=== PATIENT | female | born 1945 | race Two or more races ===

== ENCOUNTER 2018-12-18 00:22 | Inpatient (IN) | payer MEDICARE, OTHER ==
[~2018-12-18] VITALS: Ht 165.1 cm; Wt 52.6 kg
[2018-12-18 04:15] VITALS: BP 116/63
--- NOTE | 2018-12-18 04:30 | NUR ---
GPS FISH RECEIVER NOTES Admitted a 73 year old female from [facility], accompanied by Ambulance quality control inspector heading at around 0415hrs. Patient admitted on a 5150 hold for DTS. Patient was placed in the bed comfortably. Upon face to face evaluation, patient is confused; she has flights of ideas and talks nonsense. Patient is calm, cooperative, disheveled, and unkempt. Patient is able to walk with assistance. Skin assessment done- no skin issues noted. Belongings inventoried and checked for contraband. Patient unable to sign consent as patient is confused. MRSA swab done. Patient is under the psychiatric care of Dr. Roche and under the medical care of YIFAN Mauricio. Oriented to call rubio- placed within easy reach. Bed in lowest, locked position. Will continue to monitor [id number] to maintain safety.
[2018-12-18] MEDS ORDERED: TEMAZEPAM 7.5 MG CAPSULE PO PRN (05:00)
[2018-12-18] MEDS ORDERED: MAG HYDROX/AL HYDROX/SIMETH 30 ML UDC PO PRN (05:00)
[2018-12-18] MEDS ORDERED: MAGNESIUM HYDROXIDE 30 ML UDC PO PRN (05:00)
[2018-12-18] MEDS ORDERED: ACETAMINOPHEN 325 MG TABLET PO PRN (05:00)
--- NOTE | 2018-12-18 06:00 | NUR ---
GPS RN NOTES CN called Bowen (Son) and notified of patient's admission. No answer. Left a message on voicemail. RADIO ADJUSTER Luly informed of admission. Med recon to be done. Will endorse to oncoming RN
[2018-12-18] MEDS ORDERED: TRAZ-182 PO (06:38)
[2018-12-18] MEDS ORDERED: LEVO100T9 PO (06:38)
[2018-12-18] MEDS ORDERED: FAMO-131 PO (06:38)
[2018-12-18] MEDS ORDERED: OLAN20TA3 PO (06:38)
[2018-12-18] MEDS ORDERED: SENN-18 PO (06:38)
[2018-12-18] MEDS ORDERED: PHEN100C4 PO (06:38)
[2018-12-18] MEDS ORDERED: ATOR20TA PO (06:38)
[2018-12-18] MEDS ORDERED: DOCU-141 PO (06:38)
[2018-12-18] MEDS ORDERED: BISA-79 PO (06:38)
[2018-12-18] MEDS ORDERED: GABA100C PO (06:38)
[2018-12-18] MEDS ORDERED: LEVE500T9 PO (06:38)
[2018-12-18 08:00] VITALS: BP 111/61
[2018-12-18] MEDS ORDERED: ACET-868 PO (08:11)
[2018-12-18] MEDS ORDERED: BISA10SU8 RC (08:11)
[2018-12-18] MEDS: DIVALPROEX SODIUM 125 MG CAP.SPRINK PO SCH ×2 (13:57→16:42)
[2018-12-18 16:00] VITALS: BP 106/64
--- NOTE | 2018-12-18 16:23 | NUR ---
GPS NOTES YIFAN ESPINOZA IS MADE AWARE TO DO MED RECON.
[2018-12-18] MEDS ORDERED: BISACODYL SUPP (10 MG) 10 MG/SUPP.RECT SUPP.RECT RC PRN (16:30)
[2018-12-18] MEDS: FAMOTIDINE (20 MG) 20 MG TABLET PO SCH (16:43)
[2018-12-18] MEDS: DOCUSATE SODIUM 100 MG CAPSULE PO SCH (16:43)
[2018-12-18] MEDS: GABAPENTIN 100 MG CAPSULE PO SCH (16:43)
[2018-12-18 19:50] VITALS: BP 110/62
[2018-12-18 20:00] VITALS: BP 110/62
[2018-12-18] MEDS: LEVETIRACETAM (250 MG) 250 MG TABLET PO SCH (22:00)
[2018-12-18] MEDS ORDERED: PHENYTOIN EXTENDED RELEASE 100 MG CAPSULE PO SCH (22:00)
[2018-12-18] MEDS: PHENYTOIN EXTENDED RELEASE 100 MG CAPSULE PO SCH (22:01)
[2018-12-18] MEDS: OLANZAPINE 2.5 MG TABLET PO SCH (22:01)
[2018-12-18] MEDS: SENNOSIDES 8.6 MG TABLET PO SCH (22:01)
[2018-12-18] MEDS: ATORVASTATIN 10 MG TABLET PO SCH (22:01)
[2018-12-19 07:37] LABS: ALANINE AMINOTRANSFERASE 21 U/L (12-78); ALBUMIN 3.6 g/dL (3.4-5.0); ALKALINE PHOSPHATASE 99 U/L (46-116); ASPARTATE AMINOTRANSFERASE 19 U/L (15-37); BILIRUBIN,TOTAL 0.4 mg/dL (0.2-1.0); CALCIUM, SERUM 9.3 mg/dL (8.5-10.1); CARBON DIOXIDE 24 mmol/L (21-32); CHLORIDE 106 mmol/L (98-107); CREATININE 0.8 mg/dL (0.6-1.3); GLUCOSE 100 mg/dL (74-106); SODIUM SERUM 141 mmol/L (136-145); TOTAL PROTEIN, SERUM 7.5 g/dL (6.4-8.2); UREA NITROGEN, BLOOD 21 mg/dL (7-18)
[2018-12-19 07:39] LABS: CHOLESTEROL 154 mg/dL (<200); HDL CHOLESTEROL 60 mg/dL (40-60); LDL 88 mg/dL (0-99); TRIGLYCERIDES 63 mg/dL (30-150)
[2018-12-19 08:00] VITALS: BP 115/54
[2018-12-19] MEDS: GABAPENTIN 100 MG CAPSULE PO SCH ×3 (08:36→16:24)
[2018-12-19] MEDS: FAMOTIDINE (20 MG) 20 MG TABLET PO SCH ×2 (08:38→16:24)
[2018-12-19] MEDS: LEVOTHYROXINE SODIUM 100 MCG TABLET PO SCH (08:38)
[2018-12-19] MEDS: DIVALPROEX SODIUM 125 MG CAP.SPRINK PO SCH ×3 (08:38→16:25)
[2018-12-19] MEDS: LEVETIRACETAM (250 MG) 250 MG TABLET PO SCH ×2 (08:38→21:09)
[2018-12-19] MEDS: DOCUSATE SODIUM 100 MG CAPSULE PO SCH ×2 (08:39→16:24)
[2018-12-19 16:00] VITALS: BP 124/70
[2018-12-19] MEDS: ENSURE ENLIVE 237 ML LIQUID (VANILLA) PO SCH (16:37)
[2018-12-19] MEDS: LORAZEPAM 0.5 MG TABLET PO PRN (16:44)
--- NOTE | 2018-12-19 17:20 | NUR ---
RN NOTE: Ativan 0.5mg PO was given to patient d/t verbalization of anxiety and feelings of restlessness. Follow up with patient to assess anxiety and med effectiveness.
[2018-12-19 20:08] VITALS: BP 90/57
[2018-12-19] MEDS: SENNOSIDES 8.6 MG TABLET PO SCH (21:08)
[2018-12-19] MEDS: ATORVASTATIN 10 MG TABLET PO SCH (21:08)
[2018-12-19] MEDS: OLANZAPINE 2.5 MG TABLET PO SCH (21:09)
[2018-12-19] MEDS: PHENYTOIN EXTENDED RELEASE 100 MG CAPSULE PO SCH (21:21)
[2018-12-20 08:00] VITALS: BP 126/76
[2018-12-20] MEDS: DIVALPROEX SODIUM 125 MG CAP.SPRINK PO SCH ×3 (08:58→18:04)
[2018-12-20] MEDS: DOCUSATE SODIUM 100 MG CAPSULE PO SCH ×2 (08:58→18:04)
[2018-12-20] MEDS: FAMOTIDINE (20 MG) 20 MG TABLET PO SCH ×2 (08:58→18:04)
[2018-12-20] MEDS: GABAPENTIN 100 MG CAPSULE PO SCH ×3 (08:59→18:04)
[2018-12-20] MEDS: LEVETIRACETAM (250 MG) 250 MG TABLET PO SCH ×2 (08:59→21:07)
[2018-12-20] MEDS: ENSURE ENLIVE 237 ML LIQUID (VANILLA) PO SCH ×2 (08:59→18:05)
[2018-12-20] MEDS: LEVOTHYROXINE SODIUM 100 MCG TABLET PO SCH (08:59)
--- NOTE | 2018-12-20 11:39 | NUR ---
Initial Discharge Plan: Pt currently resides at [address] [place] [id number]; ([phone]). Per pt, she was unable to ascertain where she resides due to her confusion. SW will work with the pt and the MD regarding appropriate discharge planning. SW will form a safe and proper discharge plan.
--- NOTE | 2018-12-20 11:40 | NUR ---
EDUIN called the pts son, Bowen ([phone]), and left a voicemail stating that the SW would like to speak to him regarding the pts discharge plan.
[2018-12-20 16:00] VITALS: BP 115/61
--- NOTE | 2018-12-20 16:15 | NUR ---
Group Therapy: SW prompted the pt to go to group but the pt refused.
--- NOTE | 2018-12-20 19:30 | NUR ---
GPS/RN OPENING NOTES RECEIVED PATIENT IN BED, RESTING COMFORTABLY IN BED, MONITORING FOR ANY CHANGES, SKIN WARM TO TOUCH WILL CONTINUE TO MONITOR. RECEIVED REPORT FROM AM RN FOR HOANG.
[2018-12-20 19:57] VITALS: BP 102/60
[2018-12-20 20:30] VITALS: BP 102/60
[2018-12-20] MEDS: PHENYTOIN EXTENDED RELEASE 100 MG CAPSULE PO SCH (21:07)
[2018-12-20] MEDS: ATORVASTATIN 10 MG TABLET PO SCH (21:07)
[2018-12-20] MEDS: SENNOSIDES 8.6 MG TABLET PO SCH (21:07)
[2018-12-20] MEDS: OLANZAPINE 2.5 MG TABLET PO SCH (21:08)
--- NOTE | 2018-12-20 23:29 | NUR ---
GPS/RN NOTES PATIENT REQUESTED FOR SOME SNACKS, AWAKE, AND REORIENTED AT ALL TIMES.
[2018-12-21 08:00] VITALS: BP 106/59
--- NOTE | 2018-12-21 08:29 | NUR ---
EDUIN faxed a referral to [facility] with attention to Janice to the fax number: [phone].
[2018-12-21] MEDS: DOCUSATE SODIUM 100 MG CAPSULE PO SCH ×2 (08:34→16:37)
[2018-12-21] MEDS: FAMOTIDINE (20 MG) 20 MG TABLET PO SCH ×2 (08:34→16:37)
[2018-12-21] MEDS: GABAPENTIN 100 MG CAPSULE PO SCH ×3 (08:35→16:38)
[2018-12-21] MEDS: LEVETIRACETAM (250 MG) 250 MG TABLET PO SCH ×2 (08:35→21:14)
[2018-12-21] MEDS: LEVOTHYROXINE SODIUM 100 MCG TABLET PO SCH (08:35)
[2018-12-21] MEDS: DIVALPROEX SODIUM 125 MG CAP.SPRINK PO SCH ×3 (08:36→16:37)
[2018-12-21] MEDS: ENSURE ENLIVE 237 ML LIQUID (VANILLA) PO SCH ×2 (09:34→17:25)
--- NOTE | 2018-12-21 13:36 | NUR ---
Janice ([phone]) from [facility] came to evaluate the pt and stated that she would follow up with the SW regarding whether or not the facility would accept the pt.
--- NOTE | 2018-12-21 13:42 | NUR ---
EDUIN called the pts son, Bowen ([phone]), and left a voicemail stating that the SW would like to speak to him regarding the pts discharge plan.
[2018-12-21 16:00] VITALS: BP 99/64
[2018-12-21 20:00] VITALS: BP 101/62
[2018-12-21] MEDS: SENNOSIDES 8.6 MG TABLET PO SCH (21:14)
[2018-12-21] MEDS: OLANZAPINE 2.5 MG TABLET PO SCH (21:14)
[2018-12-21] MEDS: PHENYTOIN EXTENDED RELEASE 100 MG CAPSULE PO SCH (21:14)
[2018-12-21] MEDS: ATORVASTATIN 10 MG TABLET PO SCH (21:14)
[2018-12-22 08:00] VITALS: BP 102/68
[2018-12-22] MEDS: DIVALPROEX SODIUM 125 MG CAP.SPRINK PO SCH ×3 (08:14→16:39)
[2018-12-22] MEDS: LEVETIRACETAM (250 MG) 250 MG TABLET PO SCH ×2 (08:14→21:11)
[2018-12-22] MEDS: FAMOTIDINE (20 MG) 20 MG TABLET PO SCH ×2 (08:14→16:39)
[2018-12-22] MEDS: GABAPENTIN 100 MG CAPSULE PO SCH ×3 (08:14→16:40)
[2018-12-22] MEDS: LEVOTHYROXINE SODIUM 100 MCG TABLET PO SCH (08:14)
[2018-12-22] MEDS: ENSURE ENLIVE 237 ML LIQUID (VANILLA) PO SCH ×2 (08:15→17:31)
[2018-12-22] MEDS: DOCUSATE SODIUM 100 MG CAPSULE PO SCH ×2 (08:15→16:40)
[2018-12-22] MEDS: LORAZEPAM 0.5 MG TABLET PO PRN ×2 (10:39→21:12)
[2018-12-22 16:14] VITALS: BP 100/56
[2018-12-22 20:00] VITALS: BP 100/58
[2018-12-22] MEDS: PHENYTOIN EXTENDED RELEASE 100 MG CAPSULE PO SCH (21:11)
[2018-12-22] MEDS: ATORVASTATIN 10 MG TABLET PO SCH (21:12)
[2018-12-22] MEDS: OLANZAPINE 2.5 MG TABLET PO SCH (21:12)
[2018-12-22] MEDS: SENNOSIDES 8.6 MG TABLET PO SCH (21:12)
[2018-12-23] MEDS: LEVOTHYROXINE SODIUM 100 MCG TABLET PO SCH (07:46)
[2018-12-23 08:00] VITALS: BP 106/73
[2018-12-23] MEDS: LEVETIRACETAM (250 MG) 250 MG TABLET PO SCH ×2 (08:21→21:16)
[2018-12-23] MEDS: ENSURE ENLIVE 237 ML LIQUID (VANILLA) PO SCH ×2 (08:21→17:05)
[2018-12-23] MEDS: FAMOTIDINE (20 MG) 20 MG TABLET PO SCH ×2 (08:21→17:05)
[2018-12-23] MEDS: DOCUSATE SODIUM 100 MG CAPSULE PO SCH ×2 (08:22→17:05)
[2018-12-23] MEDS: DIVALPROEX SODIUM 125 MG CAP.SPRINK PO SCH ×3 (08:22→17:05)
[2018-12-23] MEDS: GABAPENTIN 100 MG CAPSULE PO SCH ×3 (08:22→17:05)
[2018-12-23 10:22] LABS: BASOPHILS % (AUTO) 0.7 % (0.0-2.0); EOSINOPHILS % (AUTO) 3.8 % (0.0-6.0); HEMATOCRIT 37 % (33-45); HEMOGLOBIN 12.6 g/dL (11.5-14.8); LYMPHOCYTES # (AUTO) 1.1 /CMM (0.8-4.8); LYMPHOCYTES % (AUTO) 28.5 % (20.0-44.0); MEAN CORPUSCULAR HGB CONC 34 g/dl (31.0-36.0); MEAN CORPUSCULAR VOLUME 97 fL (82-100); MONOCYTES # (AUTO) 0.3 /CMM (0.1-1.30); MONOCYTES % (AUTO) 6.5 % (2.0-12.0); NEUTROPHILS # (AUTO) 2.4 /CMM (1.8-8.9); NEUTROPHILS % (AUTO) 60.5 % (43.0-81.0); PLATELET COUNT (AUTO) 211 /CMM (150-450); RED BLOOD CELL COUNT(AUTO) 3.81 MIL/uL (4.0-5.2); WHITE BLOOD COUNT (AUTO) 3.9 K/uL (4.3-11.0)
[2018-12-23 10:55] LABS: VALPROIC ACID 25 ug/mL (50-100)
[2018-12-23 11:25] LABS: ALANINE AMINOTRANSFERASE 22 U/L (12-78); ALBUMIN 3.4 g/dL (3.4-5.0); ALKALINE PHOSPHATASE 108 U/L (46-116); ASPARTATE AMINOTRANSFERASE 18 U/L (15-37); BILIRUBIN,TOTAL 0.4 mg/dL (0.2-1.0); CALCIUM, SERUM 8.8 mg/dL (8.5-10.1); CARBON DIOXIDE 26 mmol/L (21-32); CHLORIDE 105 mmol/L (98-107); CREATININE 0.8 mg/dL (0.6-1.3); GLUCOSE 145 mg/dL (74-106); POTASSIUM 3.7 mmol/L (3.5-5.1); SODIUM SERUM 142 mmol/L (136-145); TOTAL PROTEIN, SERUM 7.1 g/dL (6.4-8.2); UREA NITROGEN, BLOOD 22 mg/dL (7-18)
[2018-12-23 16:00] VITALS: BP 137/64
[2018-12-23 20:00] VITALS: BP 93/57
[2018-12-23] MEDS: SENNOSIDES 8.6 MG TABLET PO SCH (21:16)
[2018-12-23] MEDS: OLANZAPINE 2.5 MG TABLET PO SCH (21:16)
[2018-12-23] MEDS: PHENYTOIN EXTENDED RELEASE 100 MG CAPSULE PO SCH (21:16)
[2018-12-23] MEDS: ATORVASTATIN 10 MG TABLET PO SCH (21:16)
[2018-12-23 23:00] VITALS: BP 105/63
[2018-12-24] MEDS: LORAZEPAM 0.5 MG TABLET PO PRN ×2 (00:24→14:40)
[2018-12-24 08:00] VITALS: BP 102/62
[2018-12-24] MEDS: DOCUSATE SODIUM 100 MG CAPSULE PO SCH ×2 (08:34→17:00)
[2018-12-24] MEDS: DIVALPROEX SODIUM 125 MG CAP.SPRINK PO SCH ×3 (08:35→17:02)
[2018-12-24] MEDS: FAMOTIDINE (20 MG) 20 MG TABLET PO SCH ×2 (08:35→17:02)
[2018-12-24] MEDS: GABAPENTIN 100 MG CAPSULE PO SCH ×3 (08:35→17:01)
[2018-12-24] MEDS: LEVOTHYROXINE SODIUM 100 MCG TABLET PO SCH (08:36)
[2018-12-24] MEDS: ENSURE ENLIVE 237 ML LIQUID (VANILLA) PO SCH ×2 (08:41→17:03)
[2018-12-24] MEDS: LEVETIRACETAM (250 MG) 250 MG TABLET PO SCH ×2 (08:46→20:55)
--- NOTE | 2018-12-24 14:40 | NUR ---
PATIENT C/O FEELING ANXIOUS AND REQUEST ATIVAN
[2018-12-24 16:00] VITALS: BP 100/61
--- NOTE | 2018-12-24 17:30 | NUR ---
PATIENT RESTING QUIETLY IN ROOM. NO C/O A/V HALLUCINATION. DENIES S/I THIS TIME.
[2018-12-24 19:46] VITALS: BP_SYST 100; BP_SYST 84; BP_DIAS 57; BP_DIAS 61
[2018-12-24] MEDS: SENNOSIDES 8.6 MG TABLET PO SCH (21:10)
[2018-12-24] MEDS: OLANZAPINE 2.5 MG TABLET PO SCH (21:10)
[2018-12-24] MEDS: PHENYTOIN EXTENDED RELEASE 100 MG CAPSULE PO SCH (21:11)
[2018-12-24] MEDS: ATORVASTATIN 10 MG TABLET PO SCH (21:23)
[2018-12-25] MEDS: LEVOTHYROXINE SODIUM 100 MCG TABLET PO SCH (07:44)
[2018-12-25 08:00] VITALS: BP 109/53
[2018-12-25] MEDS: DOCUSATE SODIUM 100 MG CAPSULE PO SCH ×2 (08:28→16:17)
[2018-12-25] MEDS: FAMOTIDINE (20 MG) 20 MG TABLET PO SCH ×2 (08:28→16:17)
[2018-12-25] MEDS: DIVALPROEX SODIUM 125 MG CAP.SPRINK PO SCH ×3 (08:28→16:17)
[2018-12-25] MEDS: ENSURE ENLIVE 237 ML LIQUID (VANILLA) PO SCH ×2 (08:28→16:18)
[2018-12-25] MEDS: LEVETIRACETAM (250 MG) 250 MG TABLET PO SCH ×2 (08:28→20:41)
[2018-12-25] MEDS: GABAPENTIN 100 MG CAPSULE PO SCH ×3 (08:28→16:17)
--- NOTE | 2018-12-25 11:26 | NUR ---
garbage worker called Janice ([phone]) from [facility]. Janice stated that she must come in again and evaluate pt and speak to pts son.
[2018-12-25 16:00] VITALS: BP 132/58
[2018-12-25 20:14] VITALS: BP 95/58
[2018-12-25] MEDS: OLANZAPINE 2.5 MG TABLET PO SCH (21:02)
[2018-12-25] MEDS: SENNOSIDES 8.6 MG TABLET PO SCH (21:06)
[2018-12-25] MEDS: PHENYTOIN EXTENDED RELEASE 100 MG CAPSULE PO SCH (21:06)
[2018-12-25] MEDS: ATORVASTATIN 10 MG TABLET PO SCH (21:07)
[2018-12-25 22:30] VITALS: BP 102/62
[2018-12-26 07:38] LABS: ALANINE AMINOTRANSFERASE 17 U/L (12-78); ALBUMIN 3.2 g/dL (3.4-5.0); ALKALINE PHOSPHATASE 100 U/L (46-116); ASPARTATE AMINOTRANSFERASE 10 U/L (15-37); BILIRUBIN,TOTAL 0.3 mg/dL (0.2-1.0); CALCIUM, SERUM 8.7 mg/dL (8.5-10.1); CARBON DIOXIDE 29 mmol/L (21-32); CHLORIDE 107 mmol/L (98-107); CREATININE 0.7 mg/dL (0.6-1.3); GLUCOSE 99 mg/dL (74-106); POTASSIUM 4.2 mmol/L (3.5-5.1); SODIUM SERUM 142 mmol/L (136-145); TOTAL PROTEIN, SERUM 6.6 g/dL (6.4-8.2); UREA NITROGEN, BLOOD 21 mg/dL (7-18)
[2018-12-26 08:00] VITALS: BP 102/61
[2018-12-26] MEDS: GABAPENTIN 100 MG CAPSULE PO SCH ×3 (08:20→16:33)
[2018-12-26] MEDS: LEVOTHYROXINE SODIUM 100 MCG TABLET PO SCH (08:20)
[2018-12-26] MEDS: FAMOTIDINE (20 MG) 20 MG TABLET PO SCH ×2 (08:20→16:32)
[2018-12-26] MEDS: LEVETIRACETAM (250 MG) 250 MG TABLET PO SCH ×2 (08:21→21:19)
[2018-12-26] MEDS: DIVALPROEX SODIUM 125 MG CAP.SPRINK PO SCH ×3 (08:21→16:32)
[2018-12-26] MEDS: DOCUSATE SODIUM 100 MG CAPSULE PO SCH ×2 (08:21→16:31)
[2018-12-26] MEDS: ENSURE ENLIVE 237 ML LIQUID (VANILLA) PO SCH ×2 (08:22→18:10)
--- NOTE | 2018-12-26 12:25 | NUR ---
Janice ([phone]) from [facility] contacted the SW and stated that once she evaluated the pt that she cannot accept the pt at this time.
--- NOTE | 2018-12-26 12:26 | NUR ---
EDUIN sent a referral to [facility] with attention to LARRY and Bowen to the fax number: [phone].
[2018-12-26 16:00] VITALS: BP 98/62
--- NOTE | 2018-12-26 16:13 | NUR ---
Sony ([phone]) contacted the SW and stated that the pt was accepted to [facility].
--- NOTE | 2018-12-26 16:14 | NUR ---
Pt refused to take part in the supportive counseling with the SW today. She stated that she wanted to remain in her room and continue sleeping.
[2018-12-26 20:00] VITALS: BP 100/65
[2018-12-26] MEDS: OLANZAPINE 2.5 MG TABLET PO SCH (21:18)
[2018-12-26] MEDS: ATORVASTATIN 10 MG TABLET PO SCH (21:18)
[2018-12-26] MEDS: PHENYTOIN EXTENDED RELEASE 100 MG CAPSULE PO SCH (21:19)
[2018-12-26] MEDS: SENNOSIDES 8.6 MG TABLET PO SCH (21:19)
[2018-12-27 08:00] VITALS: BP 110/55
[2018-12-27] MEDS: DOCUSATE SODIUM 100 MG CAPSULE PO SCH ×2 (08:27→16:26)
[2018-12-27] MEDS: LEVOTHYROXINE SODIUM 100 MCG TABLET PO SCH (08:28)
[2018-12-27] MEDS: FAMOTIDINE (20 MG) 20 MG TABLET PO SCH ×2 (08:28→16:26)
[2018-12-27] MEDS: GABAPENTIN 100 MG CAPSULE PO SCH ×3 (08:29→16:26)
[2018-12-27] MEDS: LEVETIRACETAM (250 MG) 250 MG TABLET PO SCH ×2 (08:29→20:45)
[2018-12-27] MEDS: DIVALPROEX SODIUM 125 MG CAP.SPRINK PO SCH ×3 (08:29→16:26)
[2018-12-27] MEDS: ENSURE ENLIVE 237 ML LIQUID (VANILLA) PO SCH ×2 (08:30→17:40)
[2018-12-27] MEDS: ACETAMINOPHEN 325 MG TABLET PO PRN ×2 (10:27→20:05)
--- NOTE | 2018-12-27 12:03 | NUR ---
EDUIN faxed a referral to [facility] with attention to Dora to the fax number: [phone].
--- NOTE | 2018-12-27 13:44 | NUR ---
RN NOTE: Nursing staff was informed by SUPPLY TECH that patient was found on the dining room floor. Patient was complaining of pain 5/10 to her left hip. Acetaminophen 650 mg PO PRN was given. Patient denies any light-headedness, blurred vision, or gait instability. I asked the patient to go to her room so I can do a thorough assessment. During assessment, patient stated she thinks she hit her head but now she can't remember. Skin was clear and intact. No bruises or wounds noted. Neuro check initiated. Eyes PERRLA. Patient did not seem to have any bumps or pain when assessing head. VS taken. T 98.0 BP 95/61 R 15 P 64 O2 Sat 98% RA.
--- NOTE | 2018-12-27 13:44 | NUR ---
RN NOTE: Dr. Garcia arrived at the station. New orders input for CT of the head without contrast and X-Ray to the left hip.
--- NOTE | 2018-12-27 13:44 | NUR ---
RN NOTE: Charge Nurse and RN Health And Wellness Instructor notified. Dr. Garcia contacted @ 11:05. Family member (Ron Wiseman) was also contacted at 11:06 to inform of the change in condition. No answer. Left voicemail. Awaiting call back.
--- NOTE | 2018-12-27 13:45 | NUR ---
RN NOTE: Education was provided to the patient regarding safe ambulation and proper body mechanics. Pain was re-assessed and denies any pain at the left hip. Acetaminophen effective. Will continue to monitor patient and follow up with test results.
[2018-12-27 16:00] VITALS: BP 102/59
--- NOTE | 2018-12-27 16:02 | NUR ---
clock mechanic for [facility] ([phone]) called the SW and stated that she is going to look into this pt and her previous stay at their sister facility [facility].
--- NOTE | 2018-12-27 16:03 | NUR ---
Group Therapy: Pt stated that she did not want to participate in group therapy because she just wanted an individual session with the SW. SW stated that she would come back and provide that to her.
--- NOTE | 2018-12-27 16:06 | NUR ---
EDUIN called the pt's son, Main ([phone]), and informed him that the [facility] and physical therapy. He confirmed that the pt lives at the residence that is listed on her face sheet.
[2018-12-27] MEDS: LORAZEPAM 0.5 MG TABLET PO PRN (16:25)
--- NOTE | 2018-12-27 18:49 | NUR ---
RN NOTE: Patient stated she was having anxiety. PRN Ativan was given. Patient was re-assessed. Medication effective, patient stated she had less anxiety.
[2018-12-27 20:00] VITALS: BP 110/63
[2018-12-27] MEDS: PHENYTOIN EXTENDED RELEASE 100 MG CAPSULE PO SCH (21:34)
[2018-12-27] MEDS: SENNOSIDES 8.6 MG TABLET PO SCH (21:34)
[2018-12-27] MEDS: OLANZAPINE 10 MG TABLET PO SCH (21:34)
[2018-12-27] MEDS: ATORVASTATIN 10 MG TABLET PO SCH (21:34)
--- NOTE | 2018-12-28 07:01 | NUR ---
GPS RN NOTES: PT. RESTING IN HER BED AT THIS TIME , NO ACUTE DISTRESS NOTED, PT. SLEEPING WELL , ALL NEEDS ATTENDED ANTICIPATED, ENDORSE TO ON COMING NURSE FOR CONTINUITY OF CARE.
[2018-12-28] MEDS: LEVOTHYROXINE SODIUM 100 MCG TABLET PO SCH (07:57)
[2018-12-28 08:00] VITALS: BP 106/51
[2018-12-28 08:10] LABS: BASOPHILS % (AUTO) 0.6 % (0.0-2.0); EOSINOPHILS % (AUTO) 4.1 % (0.0-6.0); HEMATOCRIT 33 % (33-45); HEMOGLOBIN 11.4 g/dL (11.5-14.8); LYMPHOCYTES # (AUTO) 1.4 /CMM (0.8-4.8); LYMPHOCYTES % (AUTO) 32.4 % (20.0-44.0); MEAN CORPUSCULAR HGB CONC 35 g/dl (31.0-36.0); MEAN CORPUSCULAR VOLUME 97 fL (82-100); MONOCYTES # (AUTO) 0.5 /CMM (0.1-1.30); MONOCYTES % (AUTO) 10.8 % (2.0-12.0); NEUTROPHILS # (AUTO) 2.2 /CMM (1.8-8.9); NEUTROPHILS % (AUTO) 52.1 % (43.0-81.0); PLATELET COUNT (AUTO) 191 /CMM (150-450); WHITE BLOOD COUNT (AUTO) 4.3 K/uL (4.3-11.0)
[2018-12-28 08:20] LABS: VALPROIC ACID 24 ug/mL (50-100)
[2018-12-28 08:22] LABS: ALANINE AMINOTRANSFERASE 16 U/L (12-78); ALKALINE PHOSPHATASE 94 U/L (46-116); ASPARTATE AMINOTRANSFERASE 13 U/L (15-37); BILIRUBIN,TOTAL 0.4 mg/dL (0.2-1.0); CALCIUM, SERUM 8.4 mg/dL (8.5-10.1); CARBON DIOXIDE 31 mmol/L (21-32); CHLORIDE 105 mmol/L (98-107); CREATININE 0.8 mg/dL (0.6-1.3); GLUCOSE 93 mg/dL (74-106); SODIUM SERUM 137 mmol/L (136-145); TOTAL PROTEIN, SERUM 6.3 g/dL (6.4-8.2); UREA NITROGEN, BLOOD 19 mg/dL (7-18)
[2018-12-28] MEDS: DOCUSATE SODIUM 100 MG CAPSULE PO SCH ×2 (08:46→16:59)
[2018-12-28] MEDS: GABAPENTIN 100 MG CAPSULE PO SCH ×3 (08:46→17:00)
[2018-12-28] MEDS: DIVALPROEX SODIUM 125 MG CAP.SPRINK PO SCH ×3 (08:46→16:59)
[2018-12-28] MEDS: LEVETIRACETAM (250 MG) 250 MG TABLET PO SCH ×2 (08:46→21:15)
[2018-12-28] MEDS: ENSURE ENLIVE 237 ML LIQUID (VANILLA) PO SCH ×2 (08:46→17:01)
[2018-12-28] MEDS: FAMOTIDINE (20 MG) 20 MG TABLET PO SCH ×2 (08:46→16:59)
--- NOTE | 2018-12-28 16:03 | NUR ---
EDUIN called the pt's son, Main ([phone]), and informed him that the pt is going to be discharged to [facility] tomorrow at around 11AM.
[2018-12-28 16:09] VITALS: BP 102/56
[2018-12-28 20:00] VITALS: BP 98/58
[2018-12-28] MEDS: ATORVASTATIN 10 MG TABLET PO SCH (21:15)
[2018-12-28] MEDS: OLANZAPINE 10 MG TABLET PO SCH (21:15)
[2018-12-28] MEDS: PHENYTOIN EXTENDED RELEASE 100 MG CAPSULE PO SCH (21:16)
[2018-12-28] MEDS: SENNOSIDES 8.6 MG TABLET PO SCH (21:16)
[2018-12-29] MEDS: ACETAMINOPHEN 325 MG TABLET PO PRN (06:53)
[2018-12-29 08:00] VITALS: BP 90/59
[2018-12-29] MEDS: LEVOTHYROXINE SODIUM 100 MCG TABLET PO SCH (08:33)
[2018-12-29] MEDS: DIVALPROEX SODIUM 125 MG CAP.SPRINK PO SCH ×2 (08:33→12:25)
[2018-12-29] MEDS: GABAPENTIN 100 MG CAPSULE PO SCH ×2 (08:33→12:24)
[2018-12-29] MEDS: LEVETIRACETAM (250 MG) 250 MG TABLET PO SCH (08:33)
[2018-12-29] MEDS: FAMOTIDINE (20 MG) 20 MG TABLET PO SCH (08:34)
[2018-12-29] MEDS: DOCUSATE SODIUM 100 MG CAPSULE PO SCH (08:34)
[2018-12-29] MEDS: ENSURE ENLIVE 237 ML LIQUID (VANILLA) PO SCH (08:36)
--- NOTE | 2018-12-29 11:54 | NUR ---
DR. LEON COVERING FOR DR. LECHUGA GAVE AN ORDER TO THE CHARGE NURSE TO D/C HOLD AND D/C TO [facility] AND TO FOLLOW UP WITH PSYCH AND MEDICAL DOCTORS.PT. SIGNED THE DISCHARGE PAPERS, BELONGINGS READY AND PICTURE TAKEN FOR THE SKIN ISSUES. DR. SCHNEIDER MADE AWARE OF THE DISCHARGE AND RECONCILED THE MEDS. REPORT GIVEN TO ANGELA OVER THE FACILITY. Addendum: 12/29/18 at 1749 by NATALIE NINA RN PT. WITHOUT DISTRESS, DENIES SUICIDAL AND HOMICIDAL.
--- NOTE | 2018-12-29 13:05 | NUR ---
Pt. left the unit via ambulance with belongings and transported via a gurney. Left without distress and on stable condition. V/S taken: BP 109/62, PA 67, temp 97.6, RR 18 and oxygen sat 98%.
--- NOTE | 2018-12-29 15:16 | NUR ---
Discharge Note: Pt was discharged to [facility] ([facility]) located at [address] [place] [address]; ([phone]). Pt was transported via [facility] (Trip #[id number]) at 2PM. Pts son, Main ([phone]), was notified of the discharge. Upon discharge, the pt appeared to be in a euthymic mood and presented with a calm affect. Pt stated that she wanted to receive extra help and return to her home as soon as possible. Pt denied both suicidal and homicidal ideation as well as auditory and visual hallucinations. Pt will be under the care of her psychiatrist, Dr. Roche, located at [address] [address]; and her shower attendant, Dr. Land, located [address] [place] [address]; .
== END 2018-12-29 13:05 | DRG 885 ==
LOC: GPS 04:05
PROVIDERS: ADMIT Psychiatry & Neurology Psychosomatic Medicine; ATTEND Nurse Practitioner Acute Care
DX: F25.0 Schizoaffective disorder, bipolar type (principal); F01.50 Vascular dementia, unspecified severity, without behavioral disturbance, psychotic disturbance, mood disturbance, and anxiety; E44.1 Mild protein-calorie malnutrition; Z68.1 Body mass index [BMI] 19.9 or less, adult; F29 Unspecified psychosis not due to a substance or known physiological condition; F41.9 Anxiety disorder, unspecified; E86.0 Dehydration; G30.9 Alzheimer's disease, unspecified; F02.80 Dementia in other diseases classified elsewhere, unspecified severity, without behavioral disturbance, psychotic disturbance, mood disturbance, and anxiety; G40.909 Epilepsy, unspecified, not intractable, without status epilepticus; E03.9 Hypothyroidism, unspecified; F32.9 Major depressive disorder, single episode, unspecified; E78.5 Hyperlipidemia, unspecified; G62.9 Polyneuropathy, unspecified; M85.80 Other specified disorders of bone density and structure, unspecified site; Z91.14 Patient's other noncompliance with medication regimen; I70.90 Unspecified atherosclerosis; K21.9 Gastro-esophageal reflux disease without esophagitis
CPT/HCPCS: 36415; 70450-TC; 73502; 80053-TC; 80061-TC; 80164-TC; 85025-TC; 87081-TC